=== PATIENT | male | born 1940 | race Caucasian/White ===

== ENCOUNTER 2018-08-04 19:17 | Emergency (ER) | payer MEDICARE, BC ==
[2018-08-04 21:03] VITALS: BP 118/64
[2018-08-04] MEDS ORDERED: Lidocaine 1% 20 ML MDV ONE (22:18)
[2018-08-04] MEDS ORDERED: Lidocaine 1% 20 ML MDV INJECT ONE (22:22)
--- NOTE | 2018-08-04 23:07 | EDM.PDOC ---
ED HPI GENERAL MEDICAL PROBLEM - General Chief Complaint: Laceration Stated Complaint: CUT FINGER Time Seen by Provider: 08/04/18 21:20 Source of Information: Reports: Patient History Limitations: Reports: No Limitations - History of Present Illness INITIAL COMMENTS - FREE TEXT/NARRATIVE: 77-year-old male was cutting something with a knife today which slipped and sliced into the dorsum of his left hand. He has been controlling the bleeding with direct pressure. Denies any pain. Last tetanus blister was about 12 years ago. Treatments MEDICAL PATHOLOGIST: Reports: Dressing(s) Left Hand Pain Score (Numeric/FACES): 4 - Related Data Allergies Allergy/AdvReac Type Severity Reaction Status Date / Time Penicillins Allergy Hives Verified 08/04/18 20:46 Home Meds: Home Meds NK [No Known Home Meds] 02/25/15 [History] Past Medical History - Infectious Disease History Infectious Disease History: Reports: Chicken Pox - Past Surgical History HEENT Surgical History: Reports: Cataract Surgery GI Surgical History: Reports: Colonoscopy Social & Family History - Tobacco Use Smoking Status *Q: Current Status Unknown Second Hand Smoke Exposure: No - Caffeine Use Caffeine Use: Reports: Coffee - Recreational Drug Use Recreational Drug Use: No ED ROS GENERAL - Review of Systems Review Of Systems: See Below Respiratory: Reports: No Symptoms Cardiovascular: Reports: No Symptoms GI/Abdominal: Reports: No Symptoms Musculoskeletal: Denies: Joint Pain, Joint Swelling Skin: Reports: Wound Neurological: Denies: Numbness, Paresthesia, Tingling ED EXAM, SKIN/RASH Exam: See Below Exam Limited By: No Limitations General Appearance: Alert, WD/WN, No Apparent Distress Ears: Normal External Exam, Normal Canal, Hearing Grossly Normal, Normal TMs Nose: Normal Inspection, Normal Mucosa, No Blood Throat/Mouth: Normal Inspection, Normal Lips, Normal Teeth, Normal Gums, Normal Oropharynx, Normal Voice, No Airway Compromise Head: Atraumatic, Normocephalic Neck: Normal Inspection, Supple, Non-Tender, Full Range of Motion Respiratory/Chest: No Respiratory Distress, Lungs Clear, Normal Breath Sounds, No Accessory Muscle Use, Chest Non-Tender Cardiovascular: Normal Peripheral Pulses, Regular Rate, Rhythm, No Edema, No Gallop, No JVD, No Murmur, No Rub GI/Abdominal: Normal Bowel Sounds, Soft, Non-Tender, No Organomegaly, No Distention, No Abnormal Bruit, No Mass (Male) Exam: No Hernia, Normal Inspection, Normal Prostate, Circumcised Rectal (Males) Exam: Normal Exam, Normal Rectal Tone, Prostate Normal Back Exam: Normal Inspection, Full Range of Motion, NT Extremities: Normal Inspection, Normal Range of Motion, Non-Tender, No Pedal Edema, Normal Capillary Refill Neurological: Alert, Oriented, CN II-XII Intact, Normal Cognition, Normal Gait, Normal Reflexes, No Motor/Sensory Deficits Psychiatric: Normal Affect, Normal Mood Lymphatic: No Adenopathy Course - Vital Signs Last Recorded V/S: Last Vital Signs Temp 36.7 C 08/04/18 21:00 Pulse 64 08/04/18 21:00 Resp 12 08/04/18 21:00 BP 118/64 08/04/18 21:00 Pulse Ox 98 08/04/18 21:00 - Orders/Labs/Meds Orders: Active Orders 24 hr Category Date Time Status Vaccines to be Administered [RC] PER UNIT ROUTINE Care 08/04/18 23:18 Active Meds: Medications Discontinued Medications Generic Name Dose Route Start Last Admin Trade Name Anuja PRN Reason Stop Dose Admin Diphtheria/Tetanus/Acell Pertussis 0.5 ml 08/04/18 23:18 08/04/18 23:26 Adacel IM 08/04/18 23:19 0.5 ml .ONCE ONE Administration Diphtheria/Tetanus/Acell Pertussis Confirm 08/04/18 23:20 Adacel Administered 08/04/18 23:21 Dose 0.5 ml .ROUTE .STK-MED ONE Lidocaine HCl Confirm 08/04/18 22:18 08/04/18 22:23 Xylocaine 1% Administered 08/04/18 22:19 Not Given Dose 20 ml .ROUTE .STK-MED ONE Lidocaine HCl 20 ml 08/04/18 22:22 08/04/18 22:23 Xylocaine 1% INJECT 08/04/18 22:23 20 ml ONETIME ONE Administration Departure - Departure Time of Disposition: 23:10 Disposition: Home, Self-Care 01 Condition: Good Clinical Impression: Laceration of left hand - Discharge Information *PRESCRIPTION DRUG MONITORING PROGRAM REVIEWED*: No *COPY OF PRESCRIPTION DRUG MONITORING REPORT IN PATIENT ANGELINA: No Instructions: Laceration Care, Adult Referrals: PCP,None [Primary Care Provider] - Forms: ED Department Discharge Additional Instructions: Wash wound daily with soap and water. Keep covered until healed. Sutures to come out in 10 days. Care Plan Goals: Follow-up with any sign of infection. - Problem List & Annotations (1) Laceration of left hand SNOMED Code(s): 933069301 Code(s): S61.412A - LACERATION WITHOUT FOREIGN BODY OF LEFT HAND, INIT ENCNTR Status: Acute - My Orders Last 24 Hours: My Active Orders 08/04/18 23:18 Vaccines to be Administered [RC] PER UNIT ROUTINE - Assessment/Plan Last 24 Hours: My Active Orders 08/04/18 23:18 Vaccines to be Administered [RC] PER UNIT ROUTINE
[2018-08-04] MEDS ORDERED: Diphtheria,Pertussis(Acell),Tetanus Vaccine 0.5 ML SDV IM ONE (23:18)
[2018-08-04] MEDS ORDERED: Diphtheria,Pertussis(Acell),Tetanus Vaccine 0.5 ML SDV ONE (23:20)
== END 2018-08-04 23:32 | disposition home or self-care (01) ==
LOC: JP.ED 19:17
DX: S61.412A Laceration without foreign body of left hand, initial encounter (principal); W26.0XXA Contact with knife, initial encounter; Z23 Encounter for immunization; Z88.0 Allergy status to penicillin
CPT/HCPCS: 90471; 90715; 99282; 99283; J2001